=== PATIENT | female | born 1970 | race Caucasian/White ===

== ENCOUNTER 2020-05-06 19:12 | Emergency (ER) | payer OTHER ==
[~2020-05-06] VITALS: Ht 165.1 cm; Wt 90.7 kg
[2020-05-06 19:32] VITALS: Ht 165.1 cm; Wt 90.7 kg
[2020-05-06 20:16] VITALS: BP 124/78
== END 2020-05-06 20:16 | disposition home or self-care (01) ==
LOC: ED 19:12
DX: G51.0 Bell's palsy (principal)
CPT/HCPCS: J7512